=== PATIENT | female | born 1985 | race Caucasian/White ===

== ENCOUNTER → 2016-10-17 | Outpatient (CLI) | payer OTHER | LOC: BMCIMAGING 11:49 | PROVIDERS: ATTEND Family Medicine | DX: R10.31 Right lower quadrant pain (principal); R10.32 Left lower quadrant pain; N88.8 Other specified noninflammatory disorders of cervix uteri ==

== ENCOUNTER → 2017-06-07 | Outpatient (CLI) | payer OTHER | LOC: FIMAGING 13:13 | PROVIDERS: ATTEND Obstetrics & Gynecology | DX: Z36.82 Encounter for antenatal screening for nuchal translucency (principal) ==

== ENCOUNTER → 2017-08-02 | Outpatient (CLI) | payer OTHER | LOC: FIMAGING 12:06 | PROVIDERS: ATTEND Obstetrics & Gynecology | DX: Z36.82 Encounter for antenatal screening for nuchal translucency (principal) ==

== ENCOUNTER → 2017-08-28 | Outpatient (CLI) | payer OTHER | LOC: FIMAGING 12:28 | PROVIDERS: ATTEND Obstetrics & Gynecology | DX: Z34.02 Encounter for supervision of normal first pregnancy, second trimester (principal); Z3A.23 23 weeks gestation of pregnancy; Z82.49 Family history of ischemic heart disease and other diseases of the circulatory system ==

== ENCOUNTER 2017-12-22 02:56 | Inpatient (IN) | payer BC ==
[2017-12-22] MEDS ORDERED: LIDOCAINE 1% 300 MG/30 ML SDV SC PRN (03:27)
[2017-12-22] MEDS ORDERED: EPSOM SALT 454 GM TP PRN (03:27)
[2017-12-22] MEDS ORDERED: OXYTOCIN/NORMAL SALINE 1,000 ML IV PRN (03:27)
[2017-12-22] MEDS ORDERED: TERBUTALINE SULFATE 1 MG/ML VIAL IV PRN (03:27)
[2017-12-22] MEDS ORDERED: MISOPROSTOL 200 MCG TAB PR PRN (03:27)
[2017-12-22] MEDS ORDERED: LR 1,000 ML IV PRN (03:27)
[2017-12-22] MEDS ORDERED: OLIVE OIL 118 ML BTL MISC PRN (03:27)
[2017-12-22] MEDS ORDERED: LIDOCAINE 1% 300 MG/30 ML SDV ONE ×2 (03:46→16:01)
[2017-12-22] MEDS ORDERED: MISOPROSTOL 200 MCG TAB ONE ×2 (03:47→16:02)
[2017-12-22] MEDS ORDERED: OLIVE OIL 118 ML BTL ONE ×2 (03:47→16:01)
[2017-12-22] MEDS ORDERED: TERBUTALINE SULFATE 1 MG/ML VIAL ONE ×2 (03:47→16:01)
[2017-12-22] MEDS ORDERED: OXYTOCIN 10 UNIT/ML VIAL ONE ×2 (03:47→16:02)
[2017-12-22] MEDS ORDERED: AMMONIA AROMATIC 1 EACH AMP IH ONE ×2 (03:47→16:01)
[2017-12-22 04:44] LABS: PLATELET COUNT 229 10^3/uL (150-400)
[2017-12-22] MEDS ORDERED: fentaNYL 200 MCG, BUPIVACAINE 0.5% 20 ML in NS 100 ML EP SCH (06:30)
[2017-12-22] MEDS ORDERED: fentaNYL 100 MCG/2 ML INJ ONE (06:34)
[2017-12-22] MEDS ORDERED: PHENYLEPHRINE HCL 100 MCG/ML SYR ONE (06:34)
[2017-12-22] MEDS ORDERED: ONDANSETRON 4 MG/2 ML VIAL IVP PRN (07:14)
[2017-12-22] MEDS ORDERED: PHENYLEPHRINE HCL 100 MCG/ML SYR IVP PRN (07:14)
[2017-12-22] MEDS ORDERED: NALOXONE HCL 0.4 MG/ML INJ IVP PRN (07:14)
--- NOTE | 2017-12-22 07:17 | PREANESOB ---
Obstetric Pre-Anesthesia Info - General Info Proposed Procedure: trial of labor : 1 Para: 0 KRISTIE: 12/20/17 Gestational Age: 40 week(s) and 2 day(s) - Info Status: Full Term Monitors: External FHR Pattern: Reassuring - Labor Status Magnesium Sulfate in Use: No Indications for Labor Analgesia: Pain Control Labor Epidural: Yes Anesthesia Allergies/Adverse Reactions: Allergy/AdvReac Type Severity Reaction Status Date / Time No Known Allergies Allergy Verified 12/22/17 03:18 Home Medications: Medication Instructions Recorded Vit27&Calcium/Iron/FA 1 each PO DAILY 12/22/17 [ Rx 1 Tablet (RX)] Visit Medications: Generic Name Dose Route Start Last Admin Trade Name Freq PRN Reason Stop Dose Admin Lactated Ringer's 1,000 mls @ 0 mls/hr 12/22/17 03:27 Lr IV 12/23/17 03:26 PRN PRN SEE PROTOCOL CONDITIONS Protocol Per Protocol Oxytocin/Sodium Chloride 1,000 mls @ 0 mls/hr 12/22/17 03:27 Pitocin 20 Units/Ns (Premix) IV PRN PRN Post Bleeding As Directed Fentanyl 200 mcg/ Bupivacaine 100 mls @ 0 mls/hr 12/22/17 06:30 HCl 20 ml/ Sodium Chloride EP 01/01/18 06:29 CONT JONATHAN Protocol As Directed Ibuprofen 600 mg 12/22/17 03:27 Motrin PO 06/20/18 03:26 Q6HRS PRN post , inflammation Lidocaine HCl 300 mg 12/22/17 03:27 Lidocaine Hcl 1% SC 06/20/18 03:26 ONCE PRN episiotomy Magnesium Sulfate 454 gm 12/22/17 03:27 Epsom Salt TP 06/20/18 03:26 Q1H PRN perineal discomfort Misoprostol 800 - 1,000 mcg 12/22/17 03:27 Cytotec AZ ONCE PRN Vaginal Atony/Bleeding [place] Oil 118 ml 12/22/17 03:27 Sweet Oil MISC 06/20/18 03:26 ONCE PRN perineal massage Terbutaline Sulfate 0.25 mg 12/22/17 03:27 Brethine IV 06/20/18 03:26 ONCE PRN Tachysystole Discontinued Medications Generic Name Dose Route Start Last Admin Trade Name Freq PRN Reason Stop Dose Admin Ammonia (Aromatic Spirit) Confirm 12/22/17 03:47 Ammonia Aromatic Administered 12/22/17 03:48 Dose 1 each IH .STK-MED ONE Fentanyl Confirm 12/22/17 06:34 Sublimaze Administered 12/22/17 06:35 Dose 100 mcg .ROUTE .STK-MED ONE Lidocaine HCl Confirm 12/22/17 03:46 Lidocaine Hcl 1% Administered 12/22/17 03:47 Dose 300 mg .ROUTE .STK-MED ONE Misoprostol Confirm 12/22/17 03:47 Cytotec Administered 12/22/17 03:48 Dose 1,000 mcg .ROUTE .STK-MED ONE [place] Oil Confirm 12/22/17 03:47 Sweet Oil Administered 12/22/17 03:48 Dose 118 ml .ROUTE .STK-MED ONE Oxytocin Confirm 12/22/17 03:47 Pitocin Administered 12/22/17 03:48 Dose 40 unit .ROUTE .STK-MED ONE Phenylephrine HCl Confirm 12/22/17 06:34 Neosynephrine Administered 12/22/17 06:35 Dose 1,000 mcg .ROUTE .STK-MED ONE Terbutaline Sulfate Confirm 12/22/17 03:47 Brethine Administered 12/22/17 03:48 Dose 1 mg .ROUTE .STK-MED ONE - Vital Signs Height/Weight (Nursing): Height 162.56 cm Weight 77.111 kg Labs: 12/22/17 04:30 Patient ABO/Rh O POSITIVE 12/22/17 04:30
[2017-12-22] MEDS ORDERED: fentaNYL 2MCG/ML/BUP 0.1% RTU 100 ML EP SCH (07:30)
[2017-12-22] MEDS ORDERED: LR 500 ML IV SCH ×4 (07:30→20:30)
--- NOTE | 2017-12-22 08:53 | PDGENHP ---
History and Physical History and Physical: CARE: [place] [place] - [facility] at 32 weeks from [facility] [place] HPI: Patient is a 32 yo G 1 P 0 at 40.2 weeks ega who presented to L&D with complaints of painful contractions since 003. Baby has been active, she denies LOF or vaginal bleeding. She was 3-4 cm when she arrived - has progressed to 5-6 cms and is requesting epidural. EDC: 12/20/17 which is based on LMP: which is known and consistent with Ultrasound at 8 weeks. Her is complicated by: - h/o anxiety - started after mother had IN and suddenly in 2016. Was treated with Xanax until late 2015, but no longer taking any medication - family h/o congenital heart defect: mat. father (some sort of valvular heart disease)- echo was normal Review of Systems: Constitutional: Denies any fever, chills, or fatigue HEENT: denies any visual changes, difficulty swallowing, hearing loss Cardiovascular: Denies any chest pain, palpitations, leg swelling Respiratory: denies any cough, wheezing, or shortness of breathe GI: Denies any nausea, vomiting, diarrhea, constipation : denies any dysuria, urgency, frequency, vaginal bleeding Musculoskeletal: denies any muscle or bone pain Skin: denies any rashes Neuro: denies any headache, seizures, lightheadedness, dizziness, or loss of consciousness Psychiatric: denies any current depression, anxiety, or SI/HI thoughts HISTORY: Previous OB history: n/a Past medical history: h/o anxiety after mother's in 2015, was treated briefly with xanax, stable now and not currently treated Past surgical history: non contributory Family history: Patient's father had congenital heart defect -unspecified valvular issue ( age 49 of [place]) Patient's mother at age 65 (2015)of [place] without previous history of known heart disease Medications: PNV, iron Allergies : NKDA LABS: Rh: O pos ABS: Neg Rubella: Immune HbsAg: NR HIV: NR VDRL: NR 1hr: 110 GC: Neg Chlamydia: Neg Pap: Normal 2014 GBS: neg Genetic screening: neg seq. screen PHYSICAL EXAM: Constitutional: WN, A&Ox3 HEENT: normocephalic atraumatic, supple Heart: RRR, no murmur Chest: CTA-B Abdomen: Soft, nontender, gravid SVE: 5-6/-2/80 Extremities: trace edema, negative delmis's sign Neuro: grossly normal Psych: normal affect assessment: Reassuring FHTs, baseline 140s +accels, no decels, moderate variability Contractions: toco q 6-7 Assessment: 1) 32 yo G 1 P 0 with IUP@ 40.2 wks ega 2) Spont labor 3) GBS neg 4) Cat 1 FHR tracing Plan: 1) Admit to L&D 2) epidural for pain relief 3) AROM when comfortable 4) Pitocin augmentation if labor inadequate after AROM 5) anticipate
[2017-12-22] MEDS ORDERED: LR 500 ML IV PRN (08:54)
[2017-12-22] MEDS ORDERED: OXYTOCIN/NORMAL SALINE 500 ML IV SCH (09:00)
[2017-12-22] MEDS ORDERED: LIDOCAINE 2% 5 ML SDV ONE (15:01)
[2017-12-22] MEDS: IBUPROFEN 600 MG TAB PO PRN (22:20)
[2017-12-22] MEDS ORDERED: SIMETHICONE 80 MG TAB CHEW PO PRN (22:27)
[2017-12-22] MEDS ORDERED: HYDROCORTISONE 0.5% CREAM TP PRN (22:27)
[2017-12-22] MEDS ORDERED: ACETAMINOPHEN 325 MG TAB PO PRN (22:27)
[2017-12-22] MEDS ORDERED: HYDROCODONE/APAP 5/325 TAB PO PRN (22:27)
--- NOTE | 2017-12-22 23:03 | OBDEL ---
Info Type: Vaginal Presentation at Delivery: Vertex L&D Analgesia/Anesthesia Type: Epidural GBS+: No Intrapartum Medications: Generic Name Dose Route Start Last Admin Trade Name Liamq PRN Reason Stop Dose Admin Oxytocin/Sodium Chloride 1,000 mls @ 0 mls/hr 12/22/17 03:27 12/22/17 21:52 Pitocin 20 Units/Ns (Premix) IV 1,000 mls PRN PRN Administration Post Bleeding As Directed Oxytocin/Sodium Chloride 500 mls @ 0 mls/hr 12/22/17 09:00 12/22/17 09:45 Pitocin 30 Units/Ns (Premix) IV 06/20/18 08:59 500 mls CONT JONATHAN Administration Protocol Per Protocol Lactated Ringer's 500 mls @ 0 mls/hr 12/22/17 20:30 12/22/17 20:17 Lactated Ringers IV 06/20/18 19:59 500 mls CONT JONATHAN Administration KVO Ibuprofen 600 mg 12/22/17 03:27 12/22/17 22:20 Motrin PO 06/20/18 03:26 600 mg Q6HRS PRN Administration post , inflammation [place] Oil 118 ml 12/22/17 03:27 12/22/17 19:43 Sweet Oil MISC 06/20/18 03:26 1 cap ONCE PRN Administration perineal massage Indications for Delivery: Spontaneous Labor Vaginal Delivery - Delivery Provider Delivery Physician/CNM: Eileen Schuler Proctoring Provider: Ashley Au - Labor and Delivery Onset of Contractions Date: 12/22/17 Onset of Contractions Time: 00:25 Onset of Contractions Type: Augmented Rupture of Membranes Date: 12/22/17 Rupture of Membranes Type: Artificial Amniotic Fluid Color: Clear Dilation Complete Date: 12/22/17 Dilation Complete Time: 16:30 Placenta Delivery Date: 12/22/17 Placenta Delivery Time: 21:26 Total Hours of Labor: 21 Non-surgical Procedures: Amniotomy Laceration: 1st Degree Repair: 2-0 Vaginal Sponge Count Correct: Yes Vaginal Needle Count Correct: Yes Vaginal Sweep Performed: No EBL: 200 Delivery Events: None Delivery Comment: Nuchal hand/arm - Medications Labor Augmentation/Induction Methods Used: Pitocin Labor Augmentation/Induction Indication: Contraction Strength Inadequate Lagrange Data KRISTIE: 12/20/17 Gestational Age: 40 week(s) and 2 day(s) Potts Delivery Date: 12/22/17 Delivery Time: 21:21 Sex of Infant: Male Score (1 Min): 7 Score (5 Min): 9 ICD10 Worksheet Patient Problems: Problems Problem Status Onset Vaginal delivery Acute - ICD10 Problem Qualifiers (1) Vaginal delivery
--- NOTE | 2017-12-22 23:18 | PDMN ---
Medical Necessity Medical necessity: C/M review: Patient meets INPT criteria under [id number] Vaginal delivery: viable male . CNM anticipates > 2 MN LOS for ongoing med nec for eval and TX of above.
[2017-12-23] MEDS: IBUPROFEN 600 MG TAB PO PRN ×4 (05:25→21:53)
--- NOTE | 2017-12-23 09:59 | POSTANESTH ---
Post Anesthetic Evaluation Cardiovascular Status: Normal, Stable, Similar to Pre-Op Cond Respiratory Status: Normal, Stable, Similar to Pre-op Cond. Level of Consciousness/Mental Status: Can Participate in Eval, Alert and Oriented Pain Control: Adequate, Prn Tx Ordered Nausea/Vomiting Control: Adequate, Prn Tx Ordered Complications Possibly Related to Anesthesia: None Noted Notes: POD1 s/p w/ PCEA. Pain control rated as excellent. Block has resolved completely, no apparent ill effects. Back site c/d/i, no e/e/e. Able to ambulate, denies n/v/VOSS.
[2017-12-23] MEDS: DOCUSATE SODIUM 100 MG CAP PO PRN (11:06)
--- NOTE | 2017-12-23 11:45 | OBPP ---
Progress Note Assessment/Plan: Assessment: 32 y/o PPD #1 s/p doing well. Plan: Routine PPC, support. 12/23/17 11:47 Subjective/ Course: 12/23/17 11:45 Pt is doing well this am. She has min pain controlled with Ibuprofen. She is breast feeding well, baby is doing well. She is ambulating, voiding without difficulty and has min lochia. Objective: 12/22/17 04:30 Patient ABO/Rh O POSITIVE 12/22/17 04:30 Temp Pulse Resp BP Pulse Ox 36.4 C 85 16 105/71 92 12/23/17 09:05 12/23/17 09:05 12/23/17 09:05 12/23/17 09:05 12/23/17 09:05 Uterine Position/Fundal Height: Umbilicus -2 Uterine Tone: Firm Physical Exam - Physical Exam General Appearance: WD/WN, alert, no apparent distress Neck: non-tender, full range of motion, supple Respiratory: chest non-tender, lungs clear, normal breath sounds Cardiac/Chest: regular rate, rhythm Abdomen: normal bowel sounds Extremities: swelling (no), Geraldine's sign (neg)
[2017-12-24] MEDS: IBUPROFEN 600 MG TAB PO PRN ×2 (06:15→12:37)
[2017-12-24] MEDS: DOCUSATE SODIUM 100 MG CAP PO PRN (09:23)
[2017-12-24 13:28] VITALS: BP 104/70
--- NOTE | 2017-12-24 15:08 | OBPP ---
Progress Note Assessment/Plan: Assessment:PPD #2 s/p - doing well, desires homegoing Plan:dc home, see dc summary, nl dc s/p precautions reviewed. Marcella Parr MD, FACOG 12/24/17 15:06 Subjective/ Course: 12/23/17 11:45 Pt is doing well this am. She has min pain controlled with Ibuprofen. She is breast feeding well, baby is doing well. She is ambulating, voiding without difficulty and has min lochia. 12/24/17 15:08 Pt is doing well, going well, voiding and ambulating without difficutly. Min lochia. Objective: 12/22/17 04:30 Patient ABO/Rh O POSITIVE 12/22/17 04:30 Temp Pulse Resp BP Pulse Ox 36.6 C 72 16 104/70 94 12/24/17 09:00 12/24/17 09:00 12/24/17 09:00 12/24/17 09:00 12/23/17 19:50 gen - pleasant, NAD CV - RRR chest - CTAB abd - soft, fundus firm at u-2, + BS ext - trace edema, calves NT Uterine Position/Fundal Height: Umbilicus -2 Uterine Tone: Firm
--- NOTE | 2017-12-24 15:17 | OBGCSDC ---
General Delivery Information - General Info : 1 Para: 1 Abortions: 0 Type: Vaginal L&D Analgesia/Anesthesia Type: Epidural Admission Date: 12/22/17 Labs: Patient ABO/Rh O POSITIVE 12/22/17 04:30 Hct 39.8 % (38.0-47.0) 12/22/17 04:30 - Hospital Course : 12/23/17 11:45 Pt is doing well this am. She has min pain controlled with Ibuprofen. She is breast feeding well, baby is doing well. She is ambulating, voiding without difficulty and has min lochia. 12/24/17 15:08 Pt is doing well, going well, voiding and ambulating without difficutly. Min lochia. Vaginal - Delivery Provider Delivery Physician/CNM: Eileen Schuler - Diagnosis Labor: Augmented Rupture of Membranes Type: Artificial Amniotic Fluid Color: Clear Laceration: 1st Degree Repair: 2-0 Delivery Events: None - Procedures Non-surgical Procedures: Amniotomy - Delivery Non-surgical Procedures: Amniotomy EBL: 200 Data KRISTIE: 12/20/17 Gestational Age: 40 week(s) and 4 day(s) Potts Delivery Date: 12/22/17 Delivery Time: 21:21 Sex of Infant: Male Weight (gm): 3628 g Score (1 Min): 7 Score (5 Min): 9 Discharge Information - Discharge Information Condition: Good Instruction/Follow Up: Four Weeks ([facility] appointment at [facility]), Six Weeks (Provider visit )
== END 2017-12-24 15:40 | disposition home or self-care (01) | DRG 775 ==
LOC: FLD 02:56 → OBSVTOIN 03:27 → FOB 12-23 00:20
PROVIDERS: ADMIT Obstetrics & Gynecology; ATTEND Obstetrics & Gynecology
PROC: 10E0XZZ Delivery of Products of Conception, External Approach (ICD-10-PCS; principal; 2017-12-22)
PROC: 0HQ9XZZ Repair Perineum Skin, External Approach (ICD-10-PCS; principal; 2017-12-22)
DX: O69.89X0 Labor and delivery complicated by other cord complications, not applicable or unspecified (principal); O70.0 First degree perineal laceration during delivery; Z3A.40 40 weeks gestation of pregnancy; Z37.0 Single live birth
CPT/HCPCS: J2370; J2590; J3010; J3105